=== PATIENT | female | born 1965 | race Caucasian/White ===

== ENCOUNTER 2018-02-08 14:06 | Observation (INO) ==
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
[2018-02-08 14:36] LABS: Baso % (Auto) 0.5 % (0.0-2.0); Eos # (Auto) 0.1 th/mm3 (0.0-0.4); Eos % (Auto) 1.5 % (0.0-4.0); Hematocrit 38.6 % (35.0-46.0); Hemoglobin 13.2 gm/dL (11.6-15.3); Lymph # (Auto) 3.1 th/mm3 (1.0-4.8); Mean Corpuscular HGB Conc 34.1 % (32.0-36.0); Mean Corpuscular Hemoglobin 33.2 pg (27.0-34.0); Mean Corpuscular Volume 97.2 fL (80.0-100.0); Mean Platelet Volume 8.5 fL (7.0-11.0); Mono # (Auto) 0.7 th/mm3 (0.0-0.9); Mono % (Auto) 7.8 % (0.0-8.0); Neut # (Auto) 4.4 th/mm3 (1.8-7.7); Neut % (Auto) 53.2 % (16.0-70.0); Platelet Count 294 th/mm3 (150-450); Red Blood Count 3.97 mil/mm3 (4.00-5.30); Red Cell Distribution Width 13.1 % (11.6-17.2); White Blood Count 8.4 th/mm3 (4.0-11.0)
[2018-02-08 15:00] LABS: Alkaline Phosphatase 106 U/L (45-117); Total Protein 7.9 g/dL (6.4-8.2)
[2018-02-08 15:22] LABS: Alanine Aminotransferase 40 U/L (10-53); Albumin 3.8 g/dL (3.4-5.0); Anion Gap 5 meq/L (5-15); Aspartate Aminotransferase 32 U/L (15-37); Blood Urea Nitrogen 10 mg/dL (7-18); Carbon Dioxide 29.4 meq/L (21.0-32.0); Chloride 107 meq/L (98-107); Glomerular Filtration Rate 79 mL/min (>89); Glucose,Random 78 mg/dL (74-106); Magnesium 2.2 mg/dL (1.5-2.5); Sodium 141 meq/L (136-145)
[2018-02-08 15:48] LABS: Potassium 4.2 meq/L (3.5-5.1)
[2018-02-08 18:48] LABS: Bilirubin,Urine Negative (Negative); Clarity,Urine Clear (Clear); Color,Urine Yellow (Yellw/Straw); Glucose,Urine (UA) Negative (Negative); Leukocyte Esterase,Urine Negative (Negative); Mucus,Urine Few /lpf (Occasional); Nitrite,Urine Negative (Negative); Specific Gravity,Urine 1.013 (1.002-1.035); Squamous Epithelial Cell,Urine <1 /hpf (0-5)
[2018-02-08 18:52] LABS: Amphetamine Screen,Urine Neg (Neg); Barbiturate Screen,Urine Neg (Neg); Cannabinoid Screen,Urine Neg (Neg); Cocaine Screen,Urine Neg (Neg)
[2018-02-08 19:04] LABS: Opiate Screen,Urine Neg (Neg)
[2018-02-08] MEDS ORDERED: Bisacodyl 10 MG Supp RECTAL PRN (20:39)
[2018-02-08] MEDS ORDERED: Dextrose 50% in Water 50 ML Vial IV.PUSH PRN (20:41)
--- NOTE | 2018-02-08 20:53 | P.HP ---
History of Present Illness Service: [facility] Primary Care Physician: Ria South History of Present Illness: 52-year-old female with a past medical history significant for diabetes mellitus , restless leg syndrome, neuropathy, hyperlipidemia and asthma presents the emergency department for evaluation of seizures. The patient reports that she was seen by Dr. Broussard yesterday and that she takes Keppra. She reports she had new onset seizures that started in September. She endorses intermittent bowel/ bladder incontinence that goes along with her seizures. She states sometimes she can remember all of the events during a seizure and sometimes she will lose hours of time. Denies any alcohol or drug use. No chest pain or shortness of breath. No abdominal pain. No nausea/vomiting/diarrhea. No lateralizing signs /symptoms. Inpatient Certification: I certify that the inpatient services were ordered in accordance with Medicare regulations governing the order. This includes certification that hospital inpatient services are reasonable and necessary and in the case of services not specified as inpatient-only under 42 CFR 419.22(n), that they are appropriately provided as inpatient services in accordance to with the 2-midnight benchmark under 43 CFR 412.3(e) Review of Systems All other systems reviewed negative except as stated in HPI PMFSH - History History Provided By: Patient - Medical History Medical History: Medical History (Last Updated 02/08/18 @ 20:45 by Shira Craven MD) Anxiety Depression Diabetes History of cholecystitis Hypercholesteremia RLS (restless legs syndrome) Seizures TBI (traumatic brain injury) GERD (gastroesophageal reflux disease) Hyperlipidemia - Surgical History Surgical History: Surgical History (Last Updated 02/08/18 @ 20:45 by Shira Craven MD) History of hernia repair History of partial hysterectomy - Family History Family History: Family History (Last Updated 02/08/18 @ 20:46 by Shira Craven MD) Other Coronary artery disease Diabetes mellitus - Tobacco History Second Hand Smoke Exposure: No Smoking Status: Never smoker - Alcohol History How Often Do You Have a Drink Containing Alcohol: Monthly or less - Substance Use History Substance History: No History of Abuse - Travel History Recent Travel in the [place] Within the Last 8 Weeks: No Recent Travel Out of the Country Within the Last 8 Weeks: No - Immunization History Tetanus Immunization: Unsure Medications and Allergies Active Medications: Active Medications Acetaminophen (Tylenol) 650 mg PO Q4H PRN PRN Reason: Temp > 100.4 Bisacodyl (Dulcolax Supp) 10 mg RECTAL DAILY PRN PRN Reason: SEVERE CONSITIPATION Dextrose (D50w Vial) 50 ml IV.PUSH UNSCH PRN PRN Reason: PER HYPOGLYCEMIA PROTOCOL Glucagon (Glucagon Inj) 1 mg OTHER PRN PRN PRN Reason: for Hypoglycemia Protocol Non-Formulary Medication (Fluoxetine [Fluoxetine]) 40 mg PO DAILY GLORIA Non-Formulary Medication (Gabapentin [Gabapentin]) 600 mg PO TID GLORIA Sodium Chloride (Ns Flush) 2 ml IV.FLUSH PRN PRN PRN Reason: FLUSH AFTER USING IV ACCESS Allergies Allergy/AdvReac Type Severity Reaction Status Date / Time erythromycin base Allergy Severe Diarrhea Verified 02/08/18 14:11 penicillin G Allergy Severe Hives Verified 02/08/18 14:11 acetaminophen Allergy Mild HALLUCINATI Verified 02/08/18 14:11 ONS hydrocodone Allergy Mild HALLUCINATI Verified 02/08/18 14:11 ONS ciprofloxacin Allergy Blister Verified 02/08/18 14:11 Home Medications Medication Instructions Recorded Confirmed Type albuterol sulfate [ProAir HFA] 1 mg INHALATION Q6HR PRN 02/08/18 02/08/18 History fluoxetine 40 mg PO DAILY 02/08/18 02/08/18 History gabapentin 600 mg PO TID 02/08/18 02/08/18 History levetiracetam [Keppra] 1,500 mg PO BID 02/08/18 02/08/18 History metformin 500 mg PO DAILY 02/08/18 02/08/18 History pantoprazole 40 mg PO DAILY 02/08/18 02/08/18 History simvastatin 10 mg PO QPM 02/08/18 02/08/18 History Exam Vital signs: Vital Signs 02/08/18 14:11 02/08/18 14:19 02/08/18 15:35 Temperature 98.0 F Pulse Rate 74 72 Respiratory Rate 12 16 Blood Pressure 160/90 H 140/78 Pulse Oximetry 100 97 94 L 02/08/18 19:33 02/08/18 19:42 Temperature Pulse Rate 73 Respiratory Rate 17 Blood Pressure 133/88 Pulse Oximetry 94 L 95 Intake & Output 02/08/18 02/08/18 02/09/18 06:59 18:59 06:59 Weight 95.254 kg Narrative: Gen.: No acute distress Head: Normocephalic. Atraumatic. EENT: Pupils equal round and reactive to light. Nose without drainage. Airway intact. Throat without injection. Cardiovascular: Regular rate and rhythm. No murmurs, rubs or gallops. Respiratory: Lungs clear to auscultation bilaterally. No wheezes or rhonchi. Abdomen: Soft, nontender, nondistended. No peritoneal signs. Musculoskeletal: No gross deformities. No edema. Skin: No obvious rashes or erythema. Neuro: Sensory and motor grossly intact. Cranial nerves II through XII grossly intact. Results - Labs CBC & Chem 7: 02/08/18 14:17 02/08/18 14:17 Labs: Laboratory Results - last 24 hr 02/08/18 02/08/18 02/08/18 14:17 14:17 14:19 WBC 8.4 RBC 3.97 L Hgb 13.2 Hct 38.6 MCV 97.2 MCH 33.2 MCHC 34.1 RDW 13.1 Plt Count 294 MPV 8.5 Neut % (Auto) 53.2 Lymph % (Auto) 37.0 [place] % (Auto) 7.8 Eos % (Auto) 1.5 Baso % (Auto) 0.5 Neut # (Auto) 4.4 Lymph # (Auto) 3.1 [place] # (Auto) 0.7 Eos # (Auto) 0.1 Baso # (Auto) 0.0 WBC Differential . Differential Comment Auto diff final Sodium 141 Potassium 4.2 Chloride 107 Carbon Dioxide 29.4 Anion Gap 5 BUN 10 Creatinine 0.77 Estimated GFR 79 L Random Glucose 78 Lactic Acid 1.3 Calcium 9.0 Magnesium 2.2 Total Bilirubin 0.3 AST 32 ALT 40 Alkaline Phosphatase 106 Total Protein 7.9 Albumin 3.8 Beta HCG, Quant Urine Color Urine Clarity Urine pH Ur Specific Sloan Urine Protein Urine Glucose (UA) Urine Ketones Urine Occult Blood Urine Nitrate Urine Bilirubin Urine Urobilinogen Ur Leukocyte Esterase Urine RBC Urine WBC Ur Squamous Epith Cells Urine Mucus Micro UA Comment Ur Microscopic Review Urine Culture Comments Urine Opiates Screen Ur Barbiturates Screen Ur Amphetamines Screen U Benzodiazepines Scrn Urine Cocaine Screen U Cannabinoids Screen 02/08/18 02/08/18 02/08/18 18:20 18:20 19:20 WBC RBC Hgb Hct MCV MCH MCHC RDW Plt Count MPV Neut % (Auto) Lymph % (Auto) [place] % (Auto) Eos % (Auto) Baso % (Auto) Neut # (Auto) Lymph # (Auto) [place] # (Auto) Eos # (Auto) Baso # (Auto) WBC Differential Differential Comment Sodium Potassium Chloride Carbon Dioxide Anion Gap BUN Creatinine Estimated GFR Random Glucose Lactic Acid Calcium Magnesium Total Bilirubin AST ALT Alkaline Phosphatase Total Protein Albumin Beta HCG, Quant 2 Urine Color Yellow Urine Clarity Clear Urine pH 5.0 Ur Specific Sloan 1.013 Urine Protein Negative Urine Glucose (UA) Negative Urine Ketones Negative Urine Occult Blood Negative Urine Nitrate Negative Urine Bilirubin Negative Urine Urobilinogen Less than 2 Ur Leukocyte Esterase Negative Urine RBC Less than 1 Urine WBC 1 Ur Squamous Epith Cells <1 Urine Mucus Few H Micro UA Comment Culture not ind Ur Microscopic Review Not Reportable Urine Culture Comments Culture not ind Urine Opiates Screen Neg Ur Barbiturates Screen Neg Ur Amphetamines Screen Neg U Benzodiazepines Scrn Neg Urine Cocaine Screen Neg U Cannabinoids Screen Neg Caprini VTE Risk Assessment Caprini VTE Risk Assessment: No/Low Risk (score <= 1) Caprini Risk Assessment Model: Point Value = 1 Point Value = 2 Point Value = 3 Point Value = 5 Age 41-60 Minor surgery BMI > 25 kg/m2 Swollen legs Varicose veins or History of unexplained or recurrent spontaneous Oral contraceptives or hormone replacement Sepsis (< 1 month) Serious lung disease, including pneumonia (< 1 month) Abnormal pulmonary function Acute myocardial infarction Congestive heart failure (< 1 month) History of inflammatory bowel disease Medical patient at bed rest Age 61-74 Arthroscopic surgery Major open surgery (> 45 min) Laparoscopic surgery (> 45 min) Malignancy Confined to bed (> 72 hours) Immobilizing plaster cast Central venous access Age >= 75 History of VTE Family history of VTE Factor V Leiden Prothrombin [id number] Lupus anticoagulant Anticardiolipin antibodies Elevated serum homocysteine Heparin-induced thrombocytopenia Other congenital or acquired thrombophilia Stroke (< 1 month) Elective arthroplasty Hip, pelvis, or leg fracture Acute spinal cord injury (< 1 month) Prophylaxis Regimen: Total Risk Factor Score Risk Level Prophylaxis Regimen 0-1 Low Early ambulation 2 Moderate Order ONE of the following: *Sequential Compression Device (SCD) *Heparin 5000 units SQ BID 3-4 Higher Order ONE of the following medications: *Heparin 5000 units SQ TID *Enoxaparin/Lovenox 40 mg SQ daily (WT < 150 kg, CrCl > 30 mL/min) *Enoxaparin/Lovenox 30 mg SQ daily (WT < 150 kg, CrCl > 10-29 mL/min) *Enoxaparin/Lovenox 30 mg SQ BID (WT < 150 kg, CrCl > 30 mL/min) AND/OR *Sequential Compression Device (SCD) 5 or more Highest Order ONE of the following medications: *Heparin 5000 units SQ TID (Preferred with Epidurals) *Enoxaparin/Lovenox 40 mg SQ daily (WT < 150 kg, CrCl > 30 mL/min) *Enoxaparin/Lovenox 30 mg SQ daily (WT < 150 kg, CrCl > 10-29 mL/min) *Enoxaparin/Lovenox 30 mg SQ BID (WT < 150 kg, CrCl > 30 mL/min) AND *Sequential Compression Device (SCD) Assessment and Plan - Plan Assessment/plan: 1. Seizures Concern for pseudoseizure as patient's seizure was stopped with normal saline flush and she was able to look at the ED physician during her seizure Neurology consulted, appreciate assistance Kejacyra MRI/EEG pending 2. Diabetes mellitus Holding home metformin Sliding-scale insulin Monitor blood glucose 3. Hyperlipidemia/asthma/GERD/depression Continue home medications FEN Heart healthy diet Electrolytes: Monitor and replete as needed
[2018-02-08] MEDS ORDERED: Gadobutrol PF 10 MMOL/10 ML Vial (for RAD) IV.SIG ONE (20:58)
[2018-02-08] MEDS ORDERED: levETIRAcetam 500 MG Tablet PO SCH (21:00)
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
--- NOTE | 2018-02-08 21:07 | MR ---
EXAM DATE: 02/08/2018 7:45 PM EDT AGE/SEX: 52 years / Female INDICATIONS: Seizures. Multiple seizures today. CLINICAL DATA: This is the patient's initial encounter. Patient reports that signs and symptoms have been present for 1 day and indicates a pain score of 7/10. MEDICAL/SURGICAL HISTORY: Diabetes mellitus type II. Irritable bowel syndrome. Cholecystectomy . Hysterectomy. Hernia repair. COMPARISON: No prior exams available for comparison. TECHNIQUE: Multiplanar, multisequence examination of the brain was performed without and with 10 ml G adavist (gadobutrol) contrast as a single exam dose. FINDINGS: No intracranial mass or midline shift. No hydrocephalus. No abnormal extra-axial fluid collections ar e present. There is no recent infarction on the diffusion weighted images. No significant white matter disease. CONCLUSION: 1. Unremarkable MRI brain with and without contrast. Electronically signed by: Mckinley Gabriel MD 02/08/2018 9:05 PM EDT
[2018-02-08] MEDS: Insulin NovoLOG Aspart Correctional Sugar Inj SQ SCH (21:19)
[2018-02-08] MEDS: Senna/Docusate Sodium 8.6/50 MG Tablet PO SCH (21:20)
[2018-02-09] MEDS: Insulin NovoLOG Aspart Correctional Sugar Inj SQ SCH ×5 (05:32→21:32)
--- NOTE | 2018-02-09 07:54 | P.PNNEU ---
Subjective Subjective Comments: sr one more spell got ativan for mri Active Medications: Active Medications Acetaminophen (Tylenol) 650 mg PO Q4H PRN PRN Reason: Temp > 100.4 Al Hydroxide/Mg Hydroxide (Milk Of Magnesia Liq) 30 ml PO Q12H PRN PRN Reason: Mild Constipation Bisacodyl (Dulcolax Supp) 10 mg RECTAL DAILY PRN PRN Reason: SEVERE CONSITIPATION Dextrose (D50w Vial) 50 ml IV.PUSH UNSCH PRN PRN Reason: PER HYPOGLYCEMIA PROTOCOL Fluoxetine HCl (Prozac) 40 mg PO DAILY [facility] Glucagon (Glucagon Inj) 1 mg OTHER PRN PRN PRN Reason: for Hypoglycemia Protocol Insulin Aspart (Novolog Insulin Correction[employer] Sugar Inj) 0 unit SQ ACHS AND 3AM [facility]; Protocol Last Admin: 02/09/18 05:32 Dose: Not Given Lactulose (Lactulose Liq) 30 ml PO DAILY PRN PRN Reason: SEVERE CONSITIPATION Ondansetron HCl (Zofran Inj) 4 mg IV.PUSH Q6H PRN PRN Reason: NAUSEA OR VOMITING Pantoprazole Sodium (Protonix) 40 mg PO DAILY [facility] Pravastatin Sodium (Pravachol) 20 mg PO DAILY@1800 [facility] Ropinirole HCl (Requip) 4 mg PO HS [facility] Senna/Docusate Sodium (Jennifer-Colace) 1 tab PO BID [facility] Last Admin: 02/08/18 21:20 Dose: Not Given Sennosides (Senokot) 17.2 mg PO Q12H PRN PRN Reason: Moderate Constipation Sodium Chloride (Ns Flush) 2 ml IV.FLUSH PRN PRN PRN Reason: FLUSH AFTER USING IV ACCESS Allergies/Adverse Reactions: Allergies Allergy/AdvReac Type Severity Reaction Status Date / Time erythromycin base Allergy Severe Diarrhea Verified 02/08/18 14:11 penicillin G Allergy Severe Hives Verified 02/08/18 14:11 acetaminophen Allergy Mild HALLUCINATI Verified 02/08/18 14:11 ONS hydrocodone Allergy Mild HALLUCINATI Verified 02/08/18 14:11 ONS ciprofloxacin Allergy Blister Verified 02/08/18 14:11 Physical Exam Vital signs: Vital Signs 02/08/18 14:11 02/08/18 14:19 02/08/18 15:35 Temperature 98.0 F Pulse Rate 74 72 Respiratory Rate 12 16 Blood Pressure 160/90 H 140/78 Pulse Oximetry 100 97 94 L 02/08/18 19:33 02/08/18 19:42 02/08/18 21:46 Temperature Pulse Rate 73 88 Respiratory Rate 17 17 Blood Pressure 133/88 136/86 Pulse Oximetry 94 L 95 96 02/09/18 00:00 02/09/18 04:00 Temperature 97.7 F Pulse Rate 80 Respiratory Rate 17 17 Blood Pressure 117/56 L Pulse Oximetry 92 L Intake & Output 02/08/18 02/09/18 02/09/18 18:59 06:59 18:59 Intake Total 500 / 500 Balance 500 / 500 Weight 95.254 kg 103.4 kg Intake: Oral 500 / 500 Other: # Voids 3 Date of Last Bowel Movement 02/08/18 Weight On Admission 104.326 kg Narrative: awake alert nad Objective Laboratory Results - last 24 hr 02/08/18 02/08/18 02/08/18 14:17 14:17 14:19 WBC 8.4 RBC 3.97 L Hgb 13.2 Hct 38.6 MCV 97.2 MCH 33.2 MCHC 34.1 RDW 13.1 Plt Count 294 MPV 8.5 Neut % (Auto) 53.2 Lymph % (Auto) 37.0 [place] % (Auto) 7.8 Eos % (Auto) 1.5 Baso % (Auto) 0.5 Neut # (Auto) 4.4 Lymph # (Auto) 3.1 [place] # (Auto) 0.7 Eos # (Auto) 0.1 Baso # (Auto) 0.0 WBC Differential . Differential Comment Auto diff final Sodium 141 Potassium 4.2 Chloride 107 Carbon Dioxide 29.4 Anion Gap 5 BUN 10 Creatinine 0.77 Estimated GFR 79 L POC Glucose Random Glucose 78 Lactic Acid 1.3 Calcium 9.0 Magnesium 2.2 Total Bilirubin 0.3 AST 32 ALT 40 Alkaline Phosphatase 106 Total Protein 7.9 Albumin 3.8 Beta HCG, Quant Urine Color Urine Clarity Urine pH Ur Specific [place] Urine Protein Urine Glucose (UA) Urine Ketones Urine Occult Blood Urine Nitrate Urine Bilirubin Urine Urobilinogen Ur Leukocyte Esterase Urine RBC Urine WBC Ur Squamous Epith Cells Urine Mucus Micro UA Comment Ur Microscopic Review Urine Culture Comments Urine Opiates Screen Ur Barbiturates Screen Ur Amphetamines Screen U Benzodiazepines Scrn Urine Cocaine Screen U Cannabinoids Screen 02/08/18 02/08/18 02/08/18 18:20 18:20 19:20 WBC RBC Hgb Hct MCV MCH MCHC RDW Plt Count MPV Neut % (Auto) Lymph % (Auto) [place] % (Auto) Eos % (Auto) Baso % (Auto) Neut # (Auto) Lymph # (Auto) [place] # (Auto) Eos # (Auto) Baso # (Auto) WBC Differential Differential Comment Sodium Potassium Chloride Carbon Dioxide Anion Gap BUN Creatinine Estimated GFR POC Glucose Random Glucose Lactic Acid Calcium Magnesium Total Bilirubin AST ALT Alkaline Phosphatase Total Protein Albumin Beta HCG, Quant 2 Urine Color Yellow Urine Clarity Clear Urine pH 5.0 Ur Specific [place] 1.013 Urine Protein Negative Urine Glucose (UA) Negative Urine Ketones Negative Urine Occult Blood Negative Urine Nitrate Negative Urine Bilirubin Negative Urine Urobilinogen Less than 2 Ur Leukocyte Esterase Negative Urine RBC Less than 1 Urine WBC 1 Ur Squamous Epith Cells <1 Urine Mucus Few H Micro UA Comment Culture not ind Ur Microscopic Review Not Reportable Urine Culture Comments Culture not ind Urine Opiates Screen Neg Ur Barbiturates Screen Neg Ur Amphetamines Screen Neg U Benzodiazepines Scrn Neg Urine Cocaine Screen Neg U Cannabinoids Screen Neg 02/08/18 02/09/18 21:18 02:30 WBC RBC Hgb Hct MCV MCH MCHC RDW Plt Count MPV Neut % (Auto) Lymph % (Auto) [place] % (Auto) Eos % (Auto) Baso % (Auto) Neut # (Auto) Lymph # (Auto) [place] # (Auto) Eos # (Auto) Baso # (Auto) WBC Differential Differential Comment Sodium Potassium Chloride Carbon Dioxide Anion Gap BUN Creatinine Estimated GFR POC Glucose 90 109 Random Glucose Lactic Acid Calcium Magnesium Total Bilirubin AST ALT Alkaline Phosphatase Total Protein Albumin Beta HCG, Quant Urine Color Urine Clarity Urine pH Ur Specific [place] Urine Protein Urine Glucose (UA) Urine Ketones Urine Occult Blood Urine Nitrate Urine Bilirubin Urine Urobilinogen Ur Leukocyte Esterase Urine RBC Urine WBC Ur Squamous Epith Cells Urine Mucus Micro UA Comment Ur Microscopic Review Urine Culture Comments Urine Opiates Screen Ur Barbiturates Screen Ur Amphetamines Screen U Benzodiazepines Scrn Urine Cocaine Screen U Cannabinoids Screen Review/Management - Review/Management Plan: imp likley pseudo sz fu labs and eeg no aed no ativan mri nl can dc when has spell on eeg and analyzed by neuro
[2018-02-09] MEDS: Senna/Docusate Sodium 8.6/50 MG Tablet PO SCH ×2 (08:26→21:05)
[2018-02-09] MEDS: FLUoxetine 20 MG Capsule PO SCH (08:27)
[2018-02-09] MEDS: Acetaminophen 325 MG Tablet PO PRN ×3 (08:39→21:05)
[2018-02-09] MEDS ORDERED: Gabapentin 300 MG Capsule PO SCH (09:00)
[2018-02-09 09:03] LABS: Thyroid Stimulating Hormone 1.18 uIU/mL (0.358-3.740)
--- NOTE | 2018-02-09 09:19 | P.PN ---
Subjective Interval history: Reports that she had one seizure last night that was unwitnessed by anyone but reports that she woke up with some confusion. Patient reports that she is now back to baseline, she is tolerating p.o. No overnight concerns. Physical Exam Vital signs: Vital Signs 02/08/18 14:11 02/08/18 14:19 02/08/18 15:35 Temperature 98.0 F Pulse Rate 74 72 Respiratory Rate 12 16 Blood Pressure 160/90 H 140/78 Pulse Oximetry 100 97 94 L 02/08/18 19:33 02/08/18 19:42 02/08/18 21:46 Temperature Pulse Rate 73 88 Respiratory Rate 17 17 Blood Pressure 133/88 136/86 Pulse Oximetry 94 L 95 96 02/09/18 00:00 02/09/18 04:00 Temperature 97.7 F Pulse Rate 80 Respiratory Rate 17 17 Blood Pressure 117/56 L Pulse Oximetry 92 L Intake & Output 02/08/18 02/09/18 02/09/18 18:59 06:59 18:59 Intake Total 500 / 500 Balance 500 / 500 Weight 95.254 kg 103.4 kg Intake: Oral 500 / 500 Other: # Voids 3 Date of Last Bowel Movement 02/08/18 Weight On Admission 104.326 kg Narrative: GENERAL: Well-nourished female, in NAD, lying comfortably in bed, EEG leads in place SKIN: Warm and dry. Multiple tattoos. HEAD: Normocephalic. No scleral icterus. No injection or drainage. PERRLA, MOM. NECK: Supple, trachea midline. No JVD or lymphadenopathy. CARDIOVASCULAR: Regular rate and rhythm without murmurs, gallops, or rubs. RESPIRATORY: Breath sounds equal bilaterally. No accessory muscle use. GASTROINTESTINAL: Abdomen soft, non-tender, nondistended. MUSCULOSKELETAL: No cyanosis, or edema. BACK: Nontender without obvious deformity. No CVA tenderness. NEURO/PSYCH: AAO x3, no focal deficits, motor strength 5/5 x 4, pleasant Results - Labs CBC & Chem 7: 02/08/18 14:17 02/08/18 14:17 Laboratory Results - last 24 hr 02/08/18 02/08/18 02/08/18 14:17 14:17 14:19 WBC 8.4 RBC 3.97 L Hgb 13.2 Hct 38.6 MCV 97.2 MCH 33.2 MCHC 34.1 RDW 13.1 Plt Count 294 MPV 8.5 Neut % (Auto) 53.2 Lymph % (Auto) 37.0 [place] % (Auto) 7.8 Eos % (Auto) 1.5 Baso % (Auto) 0.5 Neut # (Auto) 4.4 Lymph # (Auto) 3.1 [place] # (Auto) 0.7 Eos # (Auto) 0.1 Baso # (Auto) 0.0 WBC Differential . Differential Comment Auto diff final ESR Sodium 141 Potassium 4.2 Chloride 107 Carbon Dioxide 29.4 Anion Gap 5 BUN 10 Creatinine 0.77 Estimated GFR 79 L POC Glucose Random Glucose 78 Lactic Acid 1.3 Calcium 9.0 Magnesium 2.2 Total Bilirubin 0.3 AST 32 ALT 40 Alkaline Phosphatase 106 Total Protein 7.9 Albumin 3.8 Vitamin B12 TSH Beta HCG, Quant Urine Color Urine Clarity Urine pH Ur Specific [place] Urine Protein Urine Glucose (UA) Urine Ketones Urine Occult Blood Urine Nitrate Urine Bilirubin Urine Urobilinogen Ur Leukocyte Esterase Urine RBC Urine WBC Ur Squamous Epith Cells Urine Mucus Micro UA Comment Ur Microscopic Review Urine Culture Comments Urine Opiates Screen Ur Barbiturates Screen Ur Amphetamines Screen U Benzodiazepines Scrn Urine Cocaine Screen U Cannabinoids Screen 02/08/18 02/08/18 02/08/18 18:20 18:20 19:20 WBC RBC Hgb Hct MCV MCH MCHC RDW Plt Count MPV Neut % (Auto) Lymph % (Auto) [place] % (Auto) Eos % (Auto) Baso % (Auto) Neut # (Auto) Lymph # (Auto) [place] # (Auto) Eos # (Auto) Baso # (Auto) WBC Differential Differential Comment ESR Sodium Potassium Chloride Carbon Dioxide Anion Gap BUN Creatinine Estimated GFR POC Glucose Random Glucose Lactic Acid Calcium Magnesium Total Bilirubin AST ALT Alkaline Phosphatase Total Protein Albumin Vitamin B12 TSH Beta HCG, Quant 2 Urine Color Yellow Urine Clarity Clear Urine pH 5.0 Ur Specific [place] 1.013 Urine Protein Negative Urine Glucose (UA) Negative Urine Ketones Negative Urine Occult Blood Negative Urine Nitrate Negative Urine Bilirubin Negative Urine Urobilinogen Less than 2 Ur Leukocyte Esterase Negative Urine RBC Less than 1 Urine WBC 1 Ur Squamous Epith Cells <1 Urine Mucus Few H Micro UA Comment Culture not ind Ur Microscopic Review Not Reportable Urine Culture Comments Culture not ind Urine Opiates Screen Neg Ur Barbiturates Screen Neg Ur Amphetamines Screen Neg U Benzodiazepines Scrn Neg Urine Cocaine Screen Neg U Cannabinoids Screen Neg 02/08/18 02/09/18 02/09/18 21:18 02:30 06:53 WBC RBC Hgb Hct MCV MCH MCHC RDW Plt Count MPV Neut % (Auto) Lymph % (Auto) [place] % (Auto) Eos % (Auto) Baso % (Auto) Neut # (Auto) Lymph # (Auto) [place] # (Auto) Eos # (Auto) Baso # (Auto) WBC Differential Differential Comment ESR 40 H Sodium Potassium Chloride Carbon Dioxide Anion Gap BUN Creatinine Estimated GFR POC Glucose 90 109 Random Glucose Lactic Acid Calcium Magnesium Total Bilirubin AST ALT Alkaline Phosphatase Total Protein Albumin Vitamin B12 TSH Beta HCG, Quant Urine Color Urine Clarity Urine pH Ur Specific [place] Urine Protein Urine Glucose (UA) Urine Ketones Urine Occult Blood Urine Nitrate Urine Bilirubin Urine Urobilinogen Ur Leukocyte Esterase Urine RBC Urine WBC Ur Squamous Epith Cells Urine Mucus Micro UA Comment Ur Microscopic Review Urine Culture Comments Urine Opiates Screen Ur Barbiturates Screen Ur Amphetamines Screen U Benzodiazepines Scrn Urine Cocaine Screen U Cannabinoids Screen 02/09/18 02/09/18 06:53 08:24 WBC RBC Hgb Hct MCV MCH MCHC RDW Plt Count MPV Neut % (Auto) Lymph % (Auto) [place] % (Auto) Eos % (Auto) Baso % (Auto) Neut # (Auto) Lymph # (Auto) [place] # (Auto) Eos # (Auto) Baso # (Auto) WBC Differential Differential Comment ESR Sodium Potassium Chloride Carbon Dioxide Anion Gap BUN Creatinine Estimated GFR POC Glucose 101 Random Glucose Lactic Acid Calcium Magnesium Total Bilirubin AST ALT Alkaline Phosphatase Total Protein Albumin Vitamin B12 572 TSH 1.180 Beta HCG, Quant Urine Color Urine Clarity Urine pH Ur Specific [place] Urine Protein Urine Glucose (UA) Urine Ketones Urine Occult Blood Urine Nitrate Urine Bilirubin Urine Urobilinogen Ur Leukocyte Esterase Urine RBC Urine WBC Ur Squamous Epith Cells Urine Mucus Micro UA Comment Ur Microscopic Review Urine Culture Comments Urine Opiates Screen Ur Barbiturates Screen Ur Amphetamines Screen U Benzodiazepines Scrn Urine Cocaine Screen U Cannabinoids Screen - Imaging Impressions Head MRI 02/08/18 18:50 CONCLUSION: 1. Unremarkable MRI brain with and without contrast. Assessment and Plan - Assessment (1) GERD (gastroesophageal reflux disease) Code(s): K21.9 - Gastro-esophageal reflux disease without esophagitis Status: Chronic (2) Hyperlipidemia Code(s): E78.5 - Hyperlipidemia, unspecified Status: Chronic (3) Asthma Code(s): J45.909 - Unspecified asthma, uncomplicated Status: Chronic (4) Depression Code(s): F32.9 - Major depressive disorder, single episode, unspecified Status : Chronic (5) Seizure-like activity Code(s): R56.9 - Unspecified convulsions Status: Acute - Plan 52 y/o CF with PMHx of Diabetes Mellitus, Hyperlipidemia, and Depression admitted for IP mgmt of Seizure activity likely due to Pseudoseizures, HD#2 1. Seizures Concern for pseudoseizure as patient's seizure was stopped with normal saline flush and she was able to look at the ED physician during her seizure Neurology consulted, appreciate assistance with mgmt Keppra/Ativan discontinued per Neuro today MRI Head: Unremarkable Neg UDS Electrolytes WNL on 02/08 EEG pending Neuro Reccs 02/09: laly abraham sz fu labs and eeg no aed no ativan mri nl can dc when has spell on eeg and analyzed by neuro 2. Diabetes Mellitus Holding home metformin Sliding-scale insulin BS stable- 101, 90 Monitor blood glucose 3. Hyperlipidemia/Asthma/GERD/Depression Continue home medications, Prozac, PPI, statin, and Ventolin PRN 4. Hx of Headaches Tylenol PRN Encourage adequate hydration 5. RLS Cont. home Requip 6. DVT PPX: SCD's 7. Dispo: await EEG results and Neuro reccs Code Status: full Discussed Condition With: patient, RN
[2018-02-09 12:04] LABS: Anti-Nuclear Antibody Screen Pos (Neg)
[2018-02-09] MEDS ORDERED: Influenza (Quadrivalent) Vaccine 0.5 ML Syringe IM ONE (15:15)
--- NOTE | 2018-02-09 17:33 | ECG ---
Date Performed: 02/08/2018 Time Performed: 14:27:14 PTAGE: 52 years EKG: Sinus rhythm Compared to previous tracing, T wave changes have improved NORMAL ECG PREVIOUS TRACING : 03/17/2013 19.09 DOCTOR: Cheo Dunham Interpretating Date/Time 02/09/2018 17:32:57
[2018-02-10] MEDS: Insulin NovoLOG Aspart Correctional Sugar Inj SQ SCH ×3 (02:53→12:41)
[2018-02-10] MEDS: Senna/Docusate Sodium 8.6/50 MG Tablet PO SCH (08:11)
[2018-02-10 08:12] LABS: Baso % (Auto) 0.3 % (0.0-2.0); Eos # (Auto) 0.1 th/mm3 (0.0-0.4); Eos % (Auto) 1.6 % (0.0-4.0); Hematocrit 37.6 % (35.0-46.0); Hemoglobin 12.8 gm/dL (11.6-15.3); Lymph # (Auto) 2.5 th/mm3 (1.0-4.8); Mean Corpuscular HGB Conc 33.9 % (32.0-36.0); Mean Corpuscular Volume 97.3 fL (80.0-100.0); Mean Platelet Volume 8.6 fL (7.0-11.0); Mono # (Auto) 0.4 th/mm3 (0.0-0.9); Mono % (Auto) 5.9 % (0.0-8.0); Neut # (Auto) 4.2 th/mm3 (1.8-7.7); Neut % (Auto) 58.2 % (16.0-70.0); Platelet Count 276 th/mm3 (150-450); Red Blood Count 3.87 mil/mm3 (4.00-5.30); White Blood Count 7.3 th/mm3 (4.0-11.0)
[2018-02-10] MEDS: FLUoxetine 20 MG Capsule PO SCH (08:12)
[2018-02-10] MEDS: Acetaminophen 325 MG Tablet PO PRN (08:12)
[2018-02-10 08:42] LABS: Albumin 3.5 g/dL (3.4-5.0); Anion Gap 5 meq/L (5-15); Aspartate Aminotransferase 20 U/L (15-37); Blood Urea Nitrogen 14 mg/dL (7-18); Calcium 8.7 mg/dL (8.5-10.1); Carbon Dioxide 29.3 meq/L (21.0-32.0); Chloride 106 meq/L (98-107); Glomerular Filtration Rate 74 mL/min (>89); Glucose,Random 93 mg/dL (74-106); Potassium 3.8 meq/L (3.5-5.1); Sodium 140 meq/L (136-145)
[2018-02-10 08:44] LABS: Alanine Aminotransferase 38 U/L (10-53)
[2018-02-10 08:46] LABS: Alkaline Phosphatase 101 U/L (45-117); Total Protein 7.7 g/dL (6.4-8.2)
--- NOTE | 2018-02-10 08:59 | P.PN ---
Subjective Interval history: F/u sz. No further seizures. Patient requesting prescription for Xanax because of history of PTSD, I politely declined and recommended follow-up with psychiatry. Physical Exam Vital signs: Vital Signs 02/09/18 12:00 02/09/18 16:00 02/09/18 17:53 Temperature 97.9 F 98.3 F Pulse Rate 78 88 Respiratory Rate 16 15 Blood Pressure 131/73 120/71 Pulse Oximetry 95 95 95 02/09/18 20:00 02/09/18 21:32 02/10/18 00:00 Temperature 98.1 F 97.9 F Pulse Rate 91 H 79 Respiratory Rate 18 18 18 Blood Pressure 124/59 L 104/58 L Pulse Oximetry 94 L 94 L 02/10/18 06:00 Temperature 97.5 F L Pulse Rate 67 Respiratory Rate 18 Blood Pressure 136/76 Pulse Oximetry 94 L Intake & Output 02/09/18 02/10/18 02/10/18 18:59 06:59 18:59 Intake Total 480 / 480 240 / 240 Balance 480 / 480 240 / 240 Intake: Oral 480 / 480 240 / 240 Other: # Voids 1 2 Date of Last Bowel Movement 02/10/18 # Bowel Movements 1 Narrative: GENERAL: Well-nourished female, in NAD, SKIN: Warm and dry. Multiple tattoos. CARDIOVASCULAR: Regular rate and rhythm without murmurs, gallops, or rubs. RESPIRATORY: Breath sounds equal bilaterally. No accessory muscle use. GASTROINTESTINAL: Abdomen soft, non-tender, nondistended. MUSCULOSKELETAL: No cyanosis, or edema. BACK: Nontender without obvious deformity. No CVA tenderness. NEURO/PSYCH: AAO x3, no focal deficits, motor strength 5/5 x 4, pleasant Results - Labs CBC & Chem 7: 02/10/18 06:03 02/10/18 06:03 Laboratory Results - last 24 hr 02/09/18 02/09/18 02/09/18 06:53 06:53 13:29 WBC RBC Hgb Hct MCV MCH MCHC RDW Plt Count MPV Neut % (Auto) Lymph % (Auto) [place] % (Auto) Eos % (Auto) Baso % (Auto) Neut # (Auto) Lymph # (Auto) [place] # (Auto) Eos # (Auto) Baso # (Auto) WBC Differential Differential Comment Sodium Potassium Chloride Carbon Dioxide Anion Gap BUN Creatinine Estimated GFR POC Glucose 135 H Random Glucose Calcium Total Bilirubin AST ALT Alkaline Phosphatase Total Protein Albumin Vitamin B12 572 TSH 1.180 ROZINA Screen Pos H RPR Nonreactive 02/09/18 02/09/18 02/10/18 17:12 19:54 06:03 WBC 7.3 RBC 3.87 L Hgb 12.8 Hct 37.6 MCV 97.3 MCH 33.0 MCHC 33.9 RDW 13.0 Plt Count 276 MPV 8.6 Neut % (Auto) 58.2 Lymph % (Auto) 34.0 [place] % (Auto) 5.9 Eos % (Auto) 1.6 Baso % (Auto) 0.3 Neut # (Auto) 4.2 Lymph # (Auto) 2.5 [place] # (Auto) 0.4 Eos # (Auto) 0.1 Baso # (Auto) 0.0 WBC Differential . Differential Comment Auto diff final Sodium Potassium Chloride Carbon Dioxide Anion Gap BUN Creatinine Estimated GFR POC Glucose 109 121 H Random Glucose Calcium Total Bilirubin AST ALT Alkaline Phosphatase Total Protein Albumin Vitamin B12 TSH ROZINA Screen RPR 02/10/18 02/10/18 06:03 08:03 WBC RBC Hgb Hct MCV MCH MCHC RDW Plt Count MPV Neut % (Auto) Lymph % (Auto) [place] % (Auto) Eos % (Auto) Baso % (Auto) Neut # (Auto) Lymph # (Auto) [place] # (Auto) Eos # (Auto) Baso # (Auto) WBC Differential Differential Comment Sodium 140 Potassium 3.8 Chloride 106 Carbon Dioxide 29.3 Anion Gap 5 BUN 14 Creatinine 0.82 Estimated GFR 74 L POC Glucose 93 Random Glucose 93 Calcium 8.7 Total Bilirubin 0.2 AST 20 ALT 38 Alkaline Phosphatase 101 Total Protein 7.7 Albumin 3.5 Vitamin B12 TSH ROZINA Screen RPR - Imaging ITS Impressions Head MRI 02/08/18 18:50 CONCLUSION: 1. Unremarkable MRI brain with and without contrast. - Procedures none Assessment and Plan - Assessment (1) GERD (gastroesophageal reflux disease) Code(s): K21.9 - Gastro-esophageal reflux disease without esophagitis Status: Chronic (2) Hyperlipidemia Code(s): E78.5 - Hyperlipidemia, unspecified Status: Chronic (3) Asthma Code(s): J45.909 - Unspecified asthma, uncomplicated Status: Chronic (4) Depression Code(s): F32.9 - Major depressive disorder, single episode, unspecified Status : Chronic (5) Seizure-like activity Code(s): R56.9 - Unspecified convulsions Status: Acute - Plan 52 y/o CF with PMHx of Diabetes Mellitus, Hyperlipidemia, and Depression admitted for IP mgmt of Seizure activity likely due to Pseudoseizures, HD#2 1. Seizures Concern for pseudoseizure as patient's seizure was stopped with normal saline flush and she was able to look at the ED physician during her seizure Neurology consulted, appreciate assistance with mgmt. No AED at the moment Keppra/Ativan discontinued per Neuro today MRI Head: Unremarkable Neg UDS Electrolytes WNL on 02/08 EEG negative No driving, swimming alone, climbing heights and carrying young children 2. Diabetes Mellitus Sliding-scale insulin BS stable- 101, 90 Monitor blood glucose 3. Hyperlipidemia/Asthma/GERD/Depression Continue home medications, Prozac, PPI, statin, and Ventolin PRN 4. Hx of Headaches Tylenol PRN Encourage adequate hydration 5. RLS Cont. home Requip 6. DVT PPX: SCD's 7. Dispo: Stable for discharge Discharge Planning: Discharge patient to home Condition on discharge: Improved Regular Diet as tolerated Ad Ruma activity no driving Rx written: None Follow-up with primary care physician, neurology and psychiatry
--- NOTE | 2018-02-10 11:47 | MG ---
cc: James Zamorano MD EEG RECORD NUMBER: [id number]. A 7-9 Hz posterior rhythm, 20-40 microvolts, low-amplitude beta in the frontal channels. Good anterior to posterior gradient. Good EEG variability reactivity. Attenuation slowing of background with transition into drowsy state followed by stage I to stage II sleep with spindles and K complexes. Epoch 672, periods of almost a tiny spike in frontal channels with small frontal short transients, right frontal epoch 686. Good EEG variability reactivity. Rapid eye movement, background slowing suggestive of REM sleep when in REM stage II. Appropriate background increments during arousals, rapid eye movements. Chewing, glossokinetic type artifact around epoch 678. Occasional normal wakefulness. INTERPRETATION: Normal awake sleep. Continuous EEG during this recording. ADDENDUM (Dictated by Ben Broussard MD) This is an EEG read by Dr. Zamorano, #[id number]. He read it on 02/10/2018. It was report #[id number], job #[id number] I reviewed the patient's EEG. She had 3 episodes of a typical spell for her. One started on epoch 34 on 02/09/2018 which was in the morning where her eyes fluttered and she was unresponsive, not following commands or answering questions, and that just shows eye blinking and many blink artifact without any epileptiform or seizure activity. The patient got a sternal rub and did respond. She said that was one of her typical episodes. There was no epileptiform or seizure activity associated with that. Again, at epoch 1050, she reports nausea, headache and her eyes rolled back. Just some movement artifact. No epileptiform or seizure activity, and again at epoch 1104 reported nausea, headache and eyes rolling back, again entirely normal EEG during that time. No epileptiform or seizure activity was seen, and the entire recording is a normal EEG background, both awake and stage II sleep. IMPRESSION: These appear to be pseudoseizures with 3 spells which were typical for her. Did not show any seizure activity and just had a normal EEG throughout, except for on the first spell some many blink artifact from eye movement. ADDENDUM (Dictated by Ben Brosusard MD) EEG NUMBER: [id number] done on 02/10/[address] Zamorano. I did review the tiny spikes in the epoch 672-678 and up to [address] Zamorano had mentioned and these are just some bifrontal small muscle artifacts and are not epileptiform. MD ARNIE Mckeon/blayne/pollo , 07:28 AM , 07:38 AM
[2018-02-10 13:12] VITALS: BP 148/89; PULSE 87; RESP 18; TEMP 97.2; O2SAT 95
--- NOTE | 2018-02-10 13:33 | P.PNNEU ---
Subjective Subjective Comments: No cp, no dyspnea, no rodriguez, no focal weakness, no vision loss Cross cover Active Medications: Active Medications Acetaminophen (Tylenol) 650 mg PO Q4H PRN PRN Reason: Temp > 100.4 Last Admin: 02/10/18 08:12 Dose: 650 mg Al Hydroxide/Mg Hydroxide (Milk Of Magnesia Liq) 30 ml PO Q12H PRN PRN Reason: Mild Constipation Albuterol (Ventolin Hfa Inh) 2 puff INH Q6H PRN PRN Reason: SHORTNESS OF BREATH Bisacodyl (Dulcolax Supp) 10 mg RECTAL DAILY PRN PRN Reason: SEVERE CONSITIPATION Dextrose (D50w Vial) 50 ml IV.PUSH UNSCH PRN PRN Reason: PER HYPOGLYCEMIA PROTOCOL Fluoxetine HCl (Prozac) 40 mg PO DAILY FOR[facility]LY [facility], [facility]1983 Last Admin: 02/10/18 08:12 Dose: 40 mg Glucagon (Glucagon Inj) 1 mg OTHER PRN PRN PRN Reason: for Hypoglycemia Protocol Insulin Aspart (Novolog Insulin Correctional Sugar Inj) 0 unit SQ ACHS AND 3AM GLORIA; Protocol Last Admin: 02/10/18 12:41 Dose: Not Given Lactulose (Lactulose Liq) 30 ml PO DAILY PRN PRN Reason: SEVERE CONSITIPATION Ondansetron HCl (Zofran Inj) 4 mg IV.PUSH Q6H PRN PRN Reason: NAUSEA OR VOMITING Pantoprazole Sodium (Protonix) 40 mg PO DAILY [facility], [facility] Last Admin: 02/10/18 08:12 Dose: 40 mg Pravastatin Sodium (Pravachol) 20 mg PO DAILY@1800 [facility], [facility]1983 Last Admin: 02/09/18 17:22 Dose: 20 mg Ropinirole HCl (Requip) 4 mg PO HS [facility], [facility]1983 Last Admin: 02/09/18 21:06 Dose: 4 mg Senna/Docusate Sodium (Jennifer-Colace) 1 tab PO BID [facility], [facility]1983 Last Admin: 02/10/18 08:11 Dose: Not Given Sennosides (Senokot) 17.2 mg PO Q12H PRN PRN Reason: Moderate Constipation Sodium Chloride (Ns Flush) 2 ml IV.FLUSH PRN PRN PRN Reason: FLUSH AFTER USING IV ACCESS Last Admin: 02/09/18 08:29 Dose: 2 ml Allergies/Adverse Reactions: Allergies Allergy/AdvReac Type Severity Reaction Status Date / Time erythromycin base Allergy Severe Diarrhea Verified 02/08/18 14:11 penicillin G Allergy Severe Hives Verified 02/08/18 14:11 acetaminophen Allergy Mild HALLUCINATI Verified 02/08/18 14:11 ONS hydrocodone Allergy Mild HALLUCINATI Verified 02/08/18 14:11 ONS ciprofloxacin Allergy Blister Verified 02/08/18 14:11 Review of Systems All other systems reviewed negative except as stated in HPI Physical Exam Vital signs: Vital Signs 02/09/18 16:00 02/09/18 17:53 02/09/18 20:00 Temperature 98.3 F 98.1 F Pulse Rate 88 91 H Respiratory Rate 15 18 Blood Pressure 120/71 124/59 L Pulse Oximetry 95 95 94 L 02/09/18 21:32 02/10/18 00:00 02/10/18 06:00 Temperature 97.9 F 97.5 F L Pulse Rate 79 67 Respiratory Rate 18 18 18 Blood Pressure 104/58 L 136/76 Pulse Oximetry 94 L 94 L 02/10/18 08:00 02/10/18 12:00 Temperature 98.4 F 97.2 F L Pulse Rate 75 87 Respiratory Rate 16 18 Blood Pressure 124/63 148/89 H Pulse Oximetry 92 L 95 Intake & Output 02/09/18 02/10/18 02/10/18 18:59 06:59 18:59 Intake Total 480 / 480 240 / 240 Balance 480 / 480 240 / 240 Intake: Oral 480 / 480 240 / 240 Other: # Voids 1 2 Date of Last Bowel Movement 02/10/18 02/09/18 # Bowel Movements 1 Narrative: GENERAL: Well-nourished female, in NAD, calm pleasant SKIN: Warm and dry. Multiple tattoos. NEURO/PSYCH: Awake alert and oriented x3,, no aphasia, no facial asymmetry no focal weakness gait stable - Constitutional no acute distress - Routine HEENT Exam Head: Present: normocephalic Eye: Present: EOMI Objective Laboratory Results - last 24 hr 02/09/18 02/09/18 02/10/18 17:12 19:54 06:03 WBC 7.3 RBC 3.87 L Hgb 12.8 Hct 37.6 MCV 97.3 MCH 33.0 MCHC 33.9 RDW 13.0 Plt Count 276 MPV 8.6 Neut % (Auto) 58.2 Lymph % (Auto) 34.0 [place] % (Auto) 5.9 Eos % (Auto) 1.6 Baso % (Auto) 0.3 Neut # (Auto) 4.2 Lymph # (Auto) 2.5 [place] # (Auto) 0.4 Eos # (Auto) 0.1 Baso # (Auto) 0.0 WBC Differential . Differential Comment Auto diff final Sodium Potassium Chloride Carbon Dioxide Anion Gap BUN Creatinine Estimated GFR POC Glucose 109 121 H Random Glucose Calcium Total Bilirubin AST ALT Alkaline Phosphatase Total Protein Albumin 02/10/18 02/10/18 02/10/18 06:03 08:03 12:08 WBC RBC Hgb Hct MCV MCH MCHC RDW Plt Count MPV Neut % (Auto) Lymph % (Auto) [place] % (Auto) Eos % (Auto) Baso % (Auto) Neut # (Auto) Lymph # (Auto) [place] # (Auto) Eos # (Auto) Baso # (Auto) WBC Differential Differential Comment Sodium 140 Potassium 3.8 Chloride 106 Carbon Dioxide 29.3 Anion Gap 5 BUN 14 Creatinine 0.82 Estimated GFR 74 L POC Glucose 93 124 H Random Glucose 93 Calcium 8.7 Total Bilirubin 0.2 AST 20 ALT 38 Alkaline Phosphatase 101 Total Protein 7.7 Albumin 3.5 Review/Management - Diagnosis (1) Seizure-like activity Code(s): R56.9 - Unspecified convulsions Status: Acute Current Visit: Yes - Review/Management Plan: imp Likely pseudo sz no aed no ativan mri nl Nothing significant seen on continuous EEG monitoring. No active seizures She can follow-up outpatient with her family care doctor and neurology as needed No driving
== END 2018-02-10 13:34 | disposition home or self-care (01) ==
LOC: NEPE 14:06 → INTOOBSV 18:34 → NEDA 18:34 → N06 23:30
PROVIDERS: ADMIT Internal Medicine; ATTEND Internal Medicine
CPT/HCPCS: 70553; 80053; 80307; 81001; 82607; 82948; 82962; 83605; 83735; 83918; 83921; 84443; 84702; 85025; 85651; 85652; 86038; 86039; 86592; 90471; 90658; 90686; 90774; 90784; 93005; 94762; 95953; 96374; 96376; 99285; A9585; C8952; G0008; G0378; J2060; Q2038